=== PATIENT | male | born 1965 | race African-American/Black ===

== ENCOUNTER 2025-02-25 14:32 | Outpatient (CLI) | payer OTHER, SELFPAY ==
--- OUTSIDE RECORDS SUMMARY | 2025-02-25 14:38 | XMS_ITS | Clinical Summary ---
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 Gender Identity Not on file Sexual Orientation Not on file Plan of Treatment Health Maintenance Due Date Last Done Comments Hepatitis C Virus (HCV) Screening 1965 TdaP Immunization 1964 Cologuard 2009 Colonoscopy 2009 Colorectal Cancer Screening 2009 Immunochemical Fecal Occult Blood 2009 Pneumococcal Immunization (5 0+ years) (1 of 1 - PCV) 2014 Zoster Immunization (1 of 2) 2014 SARS-COV-2 Immunization ( - season) 2024 Influenza Immunization (#1) 2025 Respiratory Syncytial Virus (RSV) Immunization (Adult) (1 - 1-dose 75+ series) 2039 Hepatitis B Immunization Aged Out No longer eligible based on patient's age to complete this topic Human Papillomavirus (HPV) Immunization Aged Out No longer eligible b ased on patient's age to complete this topic Meningococcal Immunization (ACWY) Aged Out No longer eligible based on patient's age to complete this topic Rotavirus Immunization Aged Out No lo nger eligible based on patient's age to complete this topic
--- NOTE | 2025-02-25 14:41 | ECG_ITS ---
Test Date: 2025-02-25 14:51:12 Measurements Intervals [place] Rate: 56 P: 59 MD: 190 QRS: -1 QRSD: 77 T: 68 QT: 384 QTc: 372 Interpretive Statements SINUS BRADYCARDIA BASELINE ARTIFACT- I, III, AVR, AVL, AVF BORDERLINE ECG No previous ECG available for comparison Electronically Signed On 02-25-2025 14:57:16 CDT by Omid Garcia D.O.
== END 2025-02-25 14:33 | disposition home or self-care (01) ==
LOC: ANHSURGERY 14:35
PROVIDERS: PCP Nurse Practitioner; Visit Provider Surgery
DX: Z01.818 Encounter for other preprocedural examination (principal); K40.90 Unilateral inguinal hernia, without obstruction or gangrene, not specified as recurrent; I10 Essential (primary) hypertension
CPT/HCPCS: 36415; 86850; 86900; 86901; 93005

== ENCOUNTER 2025-03-01 01:22 | Day surgery (SDC) | payer OTHER, SELFPAY ==
[2025-02-22 12:57] VITALS: BMI 25.9
--- NOTE | 2025-02-22 13:06 | PC.NURSE ---
Report to the Outpatient Waiting Room, entrance under the green pavilion located off [facility], at time _1100_ on date _[id number]_. Planned Procedure Time: _1pm_.? Time changes happen often and if your time is changed the preop area will call you the afternoon before. - You and your visitor will be asked to self-screen and do not enter if you have any COVID symptoms. Please call surgeon if you need to reschedule. - A mask is optional within the hospital at this time. Patients may have clear liquids (water, carbonated beverages, clear teas, apple juice) until 3 hours prior to surgery with a maximum of 20 ounces. - No food from midnight until time of surgery and no smoking, or chewing tobacco (or any form of nicotine). No chewing gum, candy or mints. Take only the following medications with a SIP of water on the morning of surgery: __None DO NOT STOP ANY OF YOUR OTHER PRESCRIPTION MEDICATIONS PRIOR TO SURGERY EXCEPT THE FOLLOWING Hold all vitamins and supplements for 3 days per anesthesiologist. Medications to discontinue per physician Date to take last dose Please no make-up, nail arabic, hairspray, perfume, deodorant, or body powder the day of surgery.? No jewelry (including any body piercings) or valuables the day of surgery, leave them at home.? Please take a shower or bath the night before, or the morning of, surgery with an antibacterial soap.? Wear comfortable, loose fitting clothing.? - Jewelry must be removed prior to entering the operating room.? Rings and piercings that are not removed may be cut off. - The hospital will not accept responsibility for valuables.? - Please leave all valuables, including medications, at home the day of surgery. If you are going home after surgery, a licensed school bus driver must drive you home.? - NO public transportation without another adult if you receive anesthesia. - We recommend that an adult stay with you for 24 hours following discharge. - We also recommend that you do not drive, make important decision, drink alcoholic beverages, or take any drugs that were not prescribed by your health care provider for at least 24 hours after your discharge time. Follow any additional instructions given to you from your surgeon. Telephone instructions given to __Byran___and asked if any additional questions and then verbalized understanding. Patient advised to call surgeon office or pre surgery nurse liaison [phone] if any additional questions.
[2025-03-01] VITALS (11 sets, daily range): BP systolic 114–147; BP diastolic 61–81; PULSE 53–66; RESP 14–16; TEMP 36.4–36.8; O2SAT 94–100
--- OUTSIDE RECORDS SUMMARY | 2025-03-01 01:25 | XMS_ITS | Clinical Summary ---
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
--- NOTE | 2025-03-01 11:22 | P.PNAN_ITS ---
Anes - Initial Pre Proc Eval Procedure: Operation Date: 03/01/25 12:30 Proposed Procedures p Robotic Assisted Laparoscopic Right Inguinal Hernia Repair with Mesh - Carl Mayo MD Date/Time: 03/01/25 11:22 Surgeon: Carl Mayo MD Pre Op Diagnosis: Reducible Right Inguinal Hernia Patient Data Age: 59 Gender: M Height: 1.75 m Weight: 79.5 kg Allergies Allergy/AdvReac Type Severity Reaction Status Date / Time No Known Allergies Allergy Verified 02/22/25 12:56 Home Medications ?Medication ?Instructions ?Recorded ?Confirmed ?Type No Home Medications 02/22/25 02/22/25 H istory Patient hx anesthesia problems: none Family hx anesthesia problems: none Results Review: All pre-operative results and documents have been reviewed as part of the pre- operative evaluation. [facility] Past Medical History Medical History (System 02/04/25 @ 11:43 by Vicente Henry) Arthritis Family History Family History (System 02/04/25 @ 11:43 by Vicente Henry) Mother Hypertension Social History Social History (Updated 03/01/25 @ 11:23 by Byron Ward DO) Smoking status: Never smoker Alcohol intake: current Substance use: current Substance use type: marijuana Other substance usage details: occasional Do You Feel Safe in your Home?: Yes Lack of Transportation: No Lack of Food: Never True Current Housing: I Have Housing Concerned About Future Housing: No Difficulty Paying Gas/Electric Bills: No Difficulty Paying for Meds: No Currently Unemployed: No Education: Associate Degree Difficulty w/ Childcare or Family Care: No Living arrangements: with family Occupation/Education: occupation Additional occupation/education comments: [employer] Department Spiritual care concerns: No Anes - Eval Final PreProcedure Day of Procedure 03/01/25 11:22 Patient weight: overweight Heart: regular rate and rhythm Lungs: clear to auscultation Airway: Mallampati scale class II Neurological: alert and oriented Last oral intake: >/= 8 hours ASA classification: II Emergent: no Anesthetic plan: proceed Anesthesia type and monitoring: general ETT and standard monitoring Results Review: All pre-operative results and documents have been reviewed as part of the pre- operative evaluation. Informed Consent: The patient's anesthetic plan and its attendant risks and benefits were discussed with the patient/family/POA. Questions were solicited and answers provided to the satisfaction of the patient/family/POA.
[2025-03-01] MEDS: LACTATED RINGERS 1,000 ML 30 ML IV CONT ×3 (11:55→17:05)
--- NOTE | 2025-03-01 11:59 | WPDHPUPDATE1 ---
History and Physical Update Update Date/Time: 03/01/25 11:59 History and Physical has been reviewed, including an updated exam of the patient. There are NO changes in the patient's condition. Risks, benefits, and alternatives have been discussed and questions answered. Patient agrees to proceed with procedure.
[2025-03-01] MEDS: ACETAMINOPHEN 500 MG TABLET 1000 MG PO (12:02)
[2025-03-01] MEDS: KETOROLAC 15 MG/ML VIAL (*BKC) IV PUSH (12:04)
[2025-03-01] MEDS: ceFAZolin 2 GM in SODIUM CHLORIDE 0.9% IV 50 ML 100 ML IVPB (12:48)
[2025-03-01] MEDS: LIDO 1%/EPINEPHRINE 1:100,000 20 ML VIAL 25 ML INFILTRATE (13:36)
[2025-03-01] MEDS: BUPivacaine HCL 0.5% 10 ML AMP 25 ML INFILTRATE (13:37)
--- NOTE | 2025-03-01 15:09 | P.OP_ITS ---
Procedure Note - Detailed Date of Procedure 03/01/25 Pre-op Diagnosis Reducible Right Inguinal Hernia Post-op Diagnosis Same Procedure Performed Robotic assisted laparoscopic right inguinal hernia repair with Bard 3D mid weight mesh Surgeon Carl Mayo MD Assistant Media Planner Dionicio Raymundo MEDICAL INVESTIGATOR Anesthesia General Indications Patient is a 59-year-old male who presented with complaints of having a right groin bulge associated with some pain. On examination he was found have a moderately large reducible right inguinal hernia. No evidence of left inguinal hernia was noted. He presents now for robotic assisted laparoscopic right inguinal hernia repair with mesh. Findings Patient had a large indirect right inguinal hernia. No incarcerated contents within the hernia sac. No evidence of left inguinal hernia. Description of Procedure After informed consent was obtained patient brought to the operating room was placed supine position and general endotracheal anesthesia was administered. Th e abdomen bilateral groin regions were then prepped and draped usual sterile fashion. Time-out was then performed correctly identifying the patient as well as procedure to be performed. Site marking was verified. He was given perioperative IV antibiotics. I then started by entering the abdomen left upper quadrant utilizing a 5mm Optiview port. Once inside the abdomen insufflated to adequate pneumoperitoneum of 15mmHg of CO2. The patient was then placed in the Trendelenburg position with 15? head down to help the small bowel fall out of the pelvis. I could then easily see that there was a large indirect right inguinal hernia without direct component. There was no evidence of left inguinal hernia seen. I placed additional robotic trocar ports across the mid abdomen under direct visualization. The 5mm left upper quadrant trocar port was switched out to a 12mm laparoscopic trocar port. The [employer] Jackeline robot was then brought to the patient's bedside and docked and then I attached the robotic arms to the robotic ports. Robotic instruments were then advanced into the abdomen under direct visualization. I then scrubbed out the procedure sent down the robotic console to perform the dissection. I 1st started by making a preperitoneal flap starting the lower abdomen anterior medial to the right anterior superior iliac spine. This was extended medially to the midline and I divided the right side of the median umbilical ligament. I continued dissection in the preperitoneal plane distally identified the inferior epigastric vessels and seeing that the hernia sac was lateral to the inferior epigastric vessels this was a indirect right inguinal hernia. Medially and dissected down to the pubic tubercle taking down the posterior wall the bladder without injury. I dissected across the midline of the pubic symphysis and down to the space of Retzius by couple of cm utilizing the robotic hook cautery. I then dissected out the indirect inguinal hernia sac out of the inguinal canal. The vas deferens and testicular vessels were preserved without injury and some fibers the cremasteric muscle were divided to separate the hernia sac from the cord structures. There was a cord lipoma which was dissected free of the other cord structures and resected. It was removed from the abdomen. I then continued dissection of the peritoneum proximally up onto the psoas muscle and I dissected the peritoneum proximal to where the vas deferens and testicular vessels . I then measured the space and I felt that a [id number] Bard 3D mid weight mesh would be appropriate for the repair. The mesh was a packet sterilely and then placed into the abdomen through the left upper quadrant trocar port site. The medial part of the mesh was placed over the right pubic tubercle with the lower edge extending down to the space of Retzius. It conformed to the dissected space covering the indirect defect, the potential direct space, and the potential femoral space. The mesh was then secured to the tissues around the pubic tubercle utilizing 2-0 Vicryl suture. Laterally the mesh was secured to the muscle fibers anterior medial to the right anterior superior iliac spine. Additional suture was placed to approximate the mesh to the potential direct space. The mesh laid out very nicely and there was no tension on the repair. Pulling up the peritoneal flap the proximal edge of the mesh did not roll up with the flap. I then proceeded to close the peritoneal flap utilizing a running 2-0 absorbable V lock suture. The redundant hernia sac was tacked up with the closure of the peritoneum. I then examined the bowel in the lower abdomen all appeared to be normal. There was no abnormal bleeding. I then had the Jackeline robot undocked from the patient's bedside and the robotic instruments were removed. I scrubbed back into the procedure and utilizing the robotic laparoscopic placed 0 Vicryl sutures transfascially with the suture assist device at the periumbilical 8mm trocar fascial defect site. It was also used to place a 0 Vicryl suture transfascially at the left upper quadrant 12mm trocar site fascial defect. All the trocar ports were then removed under direct visualization all port sites were hemostatic. The abdomen was then allowed to decompress. The fascial sutures were then tied down at the 2 port sites. Port sites were then irrigated sterile saline solution hemostasis was good. I then injected 1% lidocaine mixed with 0.5% Marcaine with some epinephrine around all the port sites for local anesthetic effect. The port sites were then closed at the skin level utilizing a running subcuticular 4-0 Monocryl suture. The incisions were then cleaned the skin glue was applied. The patient tolerated the procedure well no complications. All sponges, needles, and instrument counts were correct at the end procedure. EBL was _25__cc. The patient was awakened and taken to recovery in stable and satisfactory condition. Implants Bard 3D mid weight mesh [id number] oriented for right groin region. Estimated Blood Loss 25 Drains No Packing No Pathology None sent Complications No immediate complications Condition Stable Disposition PACU [facility] Billing Surgery - Charge Forward: Surgery Billing
[2025-03-01] MEDS: fentaNYL CITRATE INJ (*CRX) 100 MCG/2 ML VIAL 25 MCG IV PUSH ×4 (15:24→16:00)
[2025-03-01] MEDS: oxyCODONE HCL (*CRX) 5 MG TAB IR PO (16:56)
== END 2025-03-01 17:55 | disposition home or self-care (01) ==
PROVIDERS: PCP Nurse Practitioner; Visit Provider Surgery
PROC: 8E0Y4CZ Robotic Assisted Procedure of Lower Extremity, Percutaneous Endoscopic Approach (ICD-10-PCS; CPT 49650; principal; 2025-03-01 12:30)
DX: K40.90 Unilateral inguinal hernia, without obstruction or gangrene, not specified as recurrent (principal); M19.90 Unspecified osteoarthritis, unspecified site; F12.90 Cannabis use, unspecified, uncomplicated
CPT/HCPCS: 49650; S2900; J0690; A9270; C1781; J1100; J1885; J2003; J2004; J2250; J2704; J3010; J7030; J7120